=== PATIENT | male | born 1965 | race Two or more races ===

== ENCOUNTER 2021-08-09 03:59 | Emergency (ER) | payer OTHER ==
[~2021-08-09] VITALS: Ht 175.3 cm; Wt 111.1 kg
[2021-08-09] MEDS ORDERED: [UNRECOGNIZED DRUG - OTHER] (04:10)
[2021-08-09] MEDS ORDERED: VITAMIN D310 MCG/11 (04:11)
[2021-08-09] MEDS ORDERED: TRAZODONE HCL150 MG (04:11)
[2021-08-09] MEDS ORDERED: ENDOCET 10-3251 EACH (04:11)
[2021-08-09] MEDS ORDERED: ATORVASTATIN CA40 MG (04:12)
[2021-08-09] MEDS ORDERED: TAMS0.4C (04:12)
[2021-08-09] MEDS ORDERED: ZOLOFT25 MG (04:12)
[2021-08-09] MEDS ORDERED: OMEPRAZOLE MAGN20 MG (04:12)
[2021-08-09] MEDS ORDERED: MELOXICAM15 MG (04:12)
[2021-08-09] MEDS ORDERED: ALBUTEROL2.5 MG/3 M IH (08:15)
[2021-08-09] MEDS ORDERED: ZYNCOF 20-400120 ML PO (08:15)
[2021-08-09] MEDS ORDERED: TRAZODONE HCL150 MG PO (08:17)
== END 2021-08-09 08:31 | disposition home or self-care (01) ==
LOC: ER 03:59
DX: R06.02 Shortness of breath (principal); Z03.818 Encounter for observation for suspected exposure to other biological agents ruled out; I10 Essential (primary) hypertension

== ENCOUNTER 2021-08-27 06:58 | Emergency (ER) | payer OTHER ==
[~2021-08-27] VITALS: Ht 180.3 cm; Wt 111.6 kg
[~2021-08-27 06:58] MED LIST: ALBUTEROL2.5 MG/3 M IH; ATORVASTATIN CA40 MG; ENDOCET 10-3251 EACH; MELOXICAM15 MG; OMEPRAZOLE MAGN20 MG; TAMS0.4C; TRAZODONE HCL150 MG; TRAZODONE HCL150 MG PO; VITAMIN D310 MCG/11; ZOLOFT25 MG; ZYNCOF 20-400120 ML PO; [UNRECOGNIZED DRUG - OTHER]
[2021-08-27] MEDS ORDERED: NEURONTIN800 MG PO (07:50)
[2021-08-27] MEDS ORDERED: ULTRAM50 MG PO (09:33)
[2021-08-27] MEDS ORDERED: DICLOFENAC POTA50 MG PO (09:33)
== END 2021-08-27 13:57 | disposition home or self-care (01) ==
LOC: ER 06:58
DX: S93.691A Other sprain of right foot, initial encounter (principal); X50.9XXA Other and unspecified overexertion or strenuous movements or postures, initial encounter; Y93.89 Activity, other specified; Y92.098 Other place in other non-institutional residence as the place of occurrence of the external cause; Y99.8 Other external cause status

== ENCOUNTER 2021-08-29 13:36 | Emergency (ER) | payer OTHER ==
[~2021-08-29] VITALS: Ht 180.3 cm; Wt 111.6 kg
[~2021-08-29 13:36] MED LIST changes: +DICLOFENAC POTA50 MG PO; +NEURONTIN800 MG PO; +ULTRAM50 MG PO
== END 2021-08-29 18:07 ==
LOC: ER 13:36
DX: M79.604 Pain in right leg (principal); J45.998 Other asthma

== ENCOUNTER 2021-09-01 14:11 | Emergency (ER) | payer OTHER ==
[~2021-09-01] VITALS: Ht 180.3 cm; Wt 111.6 kg
[2021-09-01] MEDS ORDERED: MULTI-VITAMIN1 EACH PO (14:27)
[2021-09-01] MEDS ORDERED: KETO10TA2 PO (17:32)
[2021-09-01] MEDS ORDERED: NORFLEX100MG PO (17:32)
== END 2021-09-01 17:51 | disposition home or self-care (01) ==
LOC: ER 14:11
DX: M54.59 Other low back pain (principal)